=== PATIENT | male | born 2000 | race Hispanic/Latino ===

== ENCOUNTER 2023-01-23 10:39 | Emergency (ER) | payer SELFPAY ==
[~2023-01-23] VITALS: Ht 172.7 cm; Wt 63.5 kg
[2023-01-23] MEDS ORDERED: BACTRIM DS1 TAB PO (12:00)
== END 2023-01-23 12:26 | disposition home or self-care (01) | DRG 605 ==
LOC: ED 10:39
DX: S61.310A Laceration without foreign body of right index finger with damage to nail, initial encounter (principal); W23.0XXA Caught, crushed, jammed, or pinched between moving objects, initial encounter